=== PATIENT | male | born 1950 | race Caucasian/White ===

== ENCOUNTER 2017-09-06 17:45 | Emergency (ER) | payer MEDICARE ==
[2017-09-06 18:58] LABS: BASO % 0.5 % (0.0-1.0); EOS # 0.1 10^3/uL (0.0-0.50); EOS % 2.2 % (0.0-3.0); HEMATOCRIT 38.3 % (42.0-52.0); HEMOGLOBIN 12.2 g/dl (13.5-17.5); IMMATURE GRANULOCYTE % 0.3 % (0-3.0); LYMPH # 1.5 10^3/uL (1.5-4.5); LYMPH % 25.6 % (24.0-44.0); MEAN CORPUSCULAR HEMOGLOBIN 27.9 pg (27.0-33.0); MEAN CORPUSCULAR HGB CONC 31.9 g/dl (32.0-36.5); MEAN CORPUSCULAR VOLUME 87.6 fl (80.0-96.0); MONO # 0.5 10^3/uL (0.0-0.8); MONO % 9.2 % (0.0-5.0); NEUTROPHILS # 3.6 10^3/uL (1.8-7.7); NEUTROPHILS % 62.2 % (36.0-66.0); PLATELET COUNT, AUTOMATED 244 10^3/uL (150-450); RED BLOOD COUNT 4.37 10^6/uL (4.30-6.10); WHITE BLOOD COUNT 5.9 10^3/uL (4.0-10.0)
[2017-09-06] MEDS: ASPIRIN 81 MG CHEW TABLET PO (19:06)
[2017-09-06 19:23] LABS: ALBUMIN 3.9 GM/DL (3.2-5.2); ALKALINE PHOSPHATASE 69 U/L (45-117); ALT/SGPT 25 U/L (12-78); ANION GAP 4 MEQ/L (8-16); AST/SGOT 12 U/L (7-37); BILIRUBIN,DIRECT 0.1 MG/DL (0.0-0.2); BILIRUBIN,TOTAL 0.4 MG/DL (0.2-1.0); BLOOD UREA NITROGEN 20 MG/DL (7-18); C REACTIVE PROTEIN QUANTITATIV < 0.30 MG/DL (0.00-0.30); CALCIUM LEVEL 8.5 MG/DL (8.8-10.2); CARBON DIOXIDE LEVEL 30 MEQ/L (21-32); CHLORIDE LEVEL 105 MEQ/L (98-107); CPK CREATINE PHOSPHOKINASE 91 U/L (39-308); GLOMERULAR FILTRATION RATE > 60.0 (>49); GLUCOSE, FASTING 95 MG/DL (70-100); POTASSIUM SERUM 4.1 MEQ/L (3.5-5.1); SODIUM LEVEL 139 MEQ/L (136-145); TOTAL PROTEIN 6.9 GM/DL (6.4-8.2); TROPONIN I < 0.02 NG/ML (< 0.10)
[2017-09-06 19:28] LABS: CK-MB VALUE MASS 1.1 NG/ML (<3.6); NT-PRO BNP 111 PG/ML (<125)
== END 2017-09-06 21:02 | disposition home or self-care (01) ==
LOC: M ED 17:45
DX: I20.8 Other forms of angina pectoris (principal); R06.02 Shortness of breath; I48.91 Unspecified atrial fibrillation; G47.33 Obstructive sleep apnea (adult) (pediatric); Z79.899 Other long term (current) drug therapy; Z79.01 Long term (current) use of anticoagulants
CPT/HCPCS: 71045

== ENCOUNTER 2018-08-14 11:48 | Day surgery (SDC) | payer MEDICARE ==
[~2018-08-14] VITALS: Ht 190.5 cm; Wt 82.5 kg
[~2018-08-14 11:48] MED LIST: ACET-907 PO; ASPI1CHW2 PO; CARV6.25 PO; ELIQ5TAB PO; FLOM0.4C39 PO; METO1TAB32 PO; NITR4TASL SL; VITA400C5 PO; VITA500T3 PO
[2018-08-14] MEDS ORDERED: ceFAZolin 1GM INJ (J0690 PER 500MG) As Ordered ONE (12:12)
[2018-08-14] MEDS ORDERED: LIDOCAINE 1% MDV 20ML VIAL SQ PRN (12:30)
[2018-08-14] MEDS ORDERED: LR 1,000 ML IV SCH (12:30)
[2018-08-14] MEDS ORDERED: ceFAZolin SOD 1 GM in D5W MINI-BAG PLUS 50 ML IV ONE (12:45)
[2018-08-14] MEDS ORDERED: MIDAZOLAM INJ 2 MG/2 ML VIAL (J2250) As Ordered ONE (13:30)
[2018-08-14] MEDS ORDERED: fentaNYL 100 MCG/2 ML INJECTION (J3010) As Ordered ONE (13:31)
[2018-08-14] MEDS ORDERED: LIDOCAINE 1% SDV INJ 30 ML VIAL As Ordered ONE (14:57)
[2018-08-14] MEDS ORDERED: PROPOFOL 200 MG/20 ML VIAL As Ordered ONE (15:11)
[2018-08-14] MEDS ORDERED: ONDANSETRON 4MG/2ML VIAL (J2405) As Ordered ONE (15:12)
--- NOTE | 2018-08-14 15:59 | RO ---
DATE OF PROCEDURE: 08/14/2018 PREOPERATIVE DIAGNOSIS: Paroxysmal atrial fibrillation monitoring. POSTOPERATIVE DIAGNOSIS: Paroxysmal atrial fibrillation monitoring. FINDINGS: Paroxysmal atrial fibrillation monitoring. OPERATIVE PROCEDURE: Implantation of [employer] implantable loop recorder. SURGEON: Janusz Huertas MD MULE DEVELOPER: None. ANESTHESIA: Lidocaine 1% local/monitored anesthetic care. SPECIMENS: None. ESTIMATED BLOOD LOSS: Less than 1 mL. BLOOD PRODUCTS REPLACED: None. DRAINS: None. COMPLICATIONS: None. DESCRIPTION OF OPERATION: The patient was prepped and draped over the sternum and left anterior chest. Lidocaine 1% was used for local anesthetic. An incision approximately 1 cm in length was made with a #15 blade through the skin at the left fourth interspace close to the left parasternal border. The guide on the insertion tool was placed into the incision and advanced subcutaneously parallel to the chest wall in a caudal direction. The insertion tool was rotated 180 degrees. The plunger was then placed into the insertion tool and used to advance the loop recorder into the subcutaneous fat. The plunger was then removed and then the insertion tool was removed leaving the loop recorder in situ. Next, I used a #4-0 Biosyn suture to approximate the skin temporarily by having the free ends protruding through the skin about a centimeter from either side of the incision and applying the suture subcutaneously. Next, two layers of Dermabond was applied and allowed to dry. The Biosyn suture was then removed entirely from the suture line by pulling it through. The patient tolerated the procedure well without any immediate complications. The initial R wave amplitude was 0.43 mV. The implantable loop recorder implanted was a Xunlei Reveal LINQ, model LNQ11 with serial number [id number].
[2018-08-14 16:06] VITALS: BP 115/6
== END 2018-08-14 16:07 | disposition home or self-care (01) ==
LOC: M SDC 11:48
PROVIDERS: ATTEND Internal Medicine Cardiovascular Disease
DX: I48.0 Paroxysmal atrial fibrillation (principal); G47.30 Sleep apnea, unspecified; Z79.899 Other long term (current) drug therapy
CPT/HCPCS: 33285; C1764; J0690; J2250; J2405; J3010

== ENCOUNTER 2019-09-28 03:24 | Emergency (ER) | payer MEDICARE ==
[~2019-09-28 03:24] MED LIST changes: +CYAN500T8 PO; -VITA400C5 PO; +VITA400C83 PO; -VITA500T3 PO
[2019-09-28] MEDS ORDERED: KETOROLAC 30 MG/ML 1ML VIAL ONE (06:57)
[2019-11-01 09:10] LABS: APPEARANCE, URINE CLOUDY (CLEAR); BACTERIA, URINE AUTO NEGATIVE (NEGATIVE); BASO % 0.6 % (0.0-1.0); BILIRUBIN, URINE AUTO NEGATIVE (NEGATIVE); BLOOD, URINE BLOOD 3+ (NEGATIVE); CALCIUM OXALATE CRYSTALS LARGE; COLOR, URINE AMBER (YELLOW); EOS # 0.1 10^3/uL (0.0-0.5); EOS % 1.3 % (0.0-3.0); GLUCOSE, URINE (UA) AUTO NEGATIVE (NEGATIVE); HEMATOCRIT 40.5 % (42.0-52.0); HEMOGLOBIN 12.4 g/dl (13.5-17.5); KETONE, URINE AUTO 1+ mg/dL (NEGATIVE); LEUKOCYTE ESTERASE, URINE AUTO NEGATIVE (NEGATIVE); LYMPH % 18.6 % (24.0-44.0); MEAN CORPUSCULAR HEMOGLOBIN 27.9 pg (27.0-33.0); MEAN CORPUSCULAR HGB CONC 30.6 g/dl (32.0-36.5); MEAN CORPUSCULAR VOLUME 91.2 fl (80.0-96.0); MONO # 0.4 10^3/uL (0.0-0.8); MONO % 6.6 % (0.0-5.0); MUCUS, URINE SMALL (NEGATIVE); NEUTROPHILS # 3.9 10^3/uL (1.5-8.5); NEUTROPHILS % 72.3 % (36.0-66.0); NITRITE, URINE AUTO NEGATIVE (NEGATIVE); PLATELET COUNT, AUTOMATED 203 10^3/uL (150-450); PROTEIN, URINE AUTO 1+ mg/dL (NEGATIVE); RBC, URINE AUTO TNTC /HPF (0-3); RED BLOOD COUNT 4.44 10^6/uL (4.30-6.10); SQUAMOUS EPITHELIAL CELL UR AU 1 /HPF (0-6); UROBILINOGEN, URINE AUTO 0.2 mg/dL (0.0-2.0); WBC, URINE AUTO 1 /HPF (0-3); WHITE BLOOD COUNT 5.4 10^3/uL (4.0-10.0)
[2019-12-12 13:45] LABS: ALBUMIN 3.7 GM/DL (3.2-5.2); ALT/SGPT 21 U/L (12-78); BILIRUBIN,DIRECT 0.1 MG/DL (0.0-0.2); BILIRUBIN,TOTAL 0.3 MG/DL (0.2-1.0); BLOOD UREA NITROGEN 18 MG/DL (7-18); CALCIUM LEVEL 8.4 MG/DL (8.8-10.2); CARBON DIOXIDE LEVEL 27 MEQ/L (21-32); CHLORIDE LEVEL 107 MEQ/L (98-107); CREATININE FOR GFR 0.78 MG/DL (0.70-1.30); GLOMERULAR FILTRATION RATE > 60.0 (>49); GLUCOSE, FASTING 120 MG/DL (70-100); LIPASE 35 U/L (73-393); POTASSIUM SERUM 3.9 MEQ/L (3.5-5.1); SODIUM LEVEL 142 MEQ/L (136-145); TOTAL PROTEIN 6.9 GM/DL (6.4-8.2)
== END 2019-09-28 08:15 | disposition home or self-care (01) ==
LOC: M ED 03:24
DX: N20.1 Calculus of ureter (principal); R93.5 Abnormal findings on diagnostic imaging of other abdominal regions, including retroperitoneum; I48.91 Unspecified atrial fibrillation; Z79.01 Long term (current) use of anticoagulants; Z79.899 Other long term (current) drug therapy
CPT/HCPCS: 74176; 80048; 80076; 81001; 83690; 85025; 96374; 99283; J1885

== ENCOUNTER → 2019-10-16 | Outpatient (REF) | payer MEDICARE ==
[2019-12-09 17:30] LABS: BLOOD UREA NITROGEN 11 MG/DL (7-18); CREATININE FOR GFR 0.85 MG/DL (0.70-1.30); GLOMERULAR FILTRATION RATE > 60.0 (>49)
== END ==
LOC: M SFHCCLAY 15:41
PROVIDERS: ATTEND Physician Assistant
DX: R93.5 Abnormal findings on diagnostic imaging of other abdominal regions, including retroperitoneum (principal); N20.0 Calculus of kidney; N64.4 Mastodynia

== ENCOUNTER → 2019-10-29 | Outpatient (REF) | payer MEDICARE | LOC: M LAB REF 14:16 | PROVIDERS: ATTEND Dermatology | DX: C44.319 Basal cell carcinoma of skin of other parts of face (principal); L82.1 Other seborrheic keratosis ==

== ENCOUNTER → 2019-11-03 | Outpatient (CLI) | payer MEDICARE ==
[2019-11-03 13:18] LABS: HCG, SERUM QUANTITATIVE < 1.0 MIU/ML
[2019-11-03 13:24] LABS: FOLLICLE STIMULATING HORMONE 25.7 mIU/mL (1.4-18.1); LUTEINIZING HORMONE 7.2 mIU/mL (1.5-9.3)
== END ==
LOC: M PLALAB 09:17
PROVIDERS: ATTEND Surgery
DX: N62 Hypertrophy of breast (principal)

== ENCOUNTER → 2019-11-27 | Outpatient (REF) | payer MEDICARE ==
[2019-11-27 16:45] LABS: BLOOD UREA NITROGEN 14 MG/DL (7-18); CALCIUM LEVEL 8.6 MG/DL (8.8-10.2); CARBON DIOXIDE LEVEL 29 MEQ/L (21-32); CHLORIDE LEVEL 105 MEQ/L (98-107); CREATININE FOR GFR 0.81 MG/DL (0.70-1.30); GLOMERULAR FILTRATION RATE > 60.0 (>49); GLUCOSE, FASTING 95 MG/DL (70-100); POTASSIUM SERUM 4.1 MEQ/L (3.5-5.1); SODIUM LEVEL 137 MEQ/L (136-145)
== END ==
LOC: M LABDRAWC 15:59
PROVIDERS: ATTEND Nurse Practitioner Women's Health
DX: D17.71 Benign lipomatous neoplasm of kidney (principal)

== ENCOUNTER → 2019-12-07 | Outpatient (CLI) | payer MEDICARE ==
[~2019-12-07] MED LIST changes: +ISOVUE-370 76% 100ML VIAL As Ordered ONE
--- NOTE | 2019-12-12 13:20 | REP ---
CT ABDOMEN WITHOUT AND WITH INTRAVENOUS (IV) CONTRAST HISTORY: Angiomyolipoma. COMPARISON: Abdominal CT study 09/28/2019. CT CONTRAST DOSE: 100 mL of intravenous Isovue-[address] FINDINGS: Preliminary digital esl teacher radiograph demonstrates a cardiac loop recorder projecting in the left precordium. Visualized bowel gas pattern is normal. The lung bases are essentially clear on axial CT images. There is a hepatic hemangioma in the right lobe of the liver measuring approximately 3.5 cm. This is unchanged from the prior CT and MRI study from 10/22/2019. There is a smaller hemangioma in the left lobe of the liver also unchanged. This measures approximately 1.6 cm in diameter. There is a cyst in the right lobe near the hepatic venous confluence 8 mm in diameter. There is another small cyst inferiorly in the right lobe measuring 7 mm. These are unchanged from the MRI study. Normal adrenal glands are seen. No splenic abnormality is observed. No abnormalities noted in the gallbladder or in the pancreas. The previously noted right-sided hydronephrosis has resolved. There is no evidence of intrarenal calculus. There is a peripheral lesion in the left mid kidney posteriorly 1.9 cm in diameter. This is slightly hyperintense on the noncontrast study and shows no evidence of contrast enhancement on post contrast dual-phase acquisition. This is similar to its appearance and lack of enhancement by MRI study 10/22/2019. It is unchanged from the 09/28/2019 CT study and is most compatible with a hyperdense cyst. No fat-containing mass is seen. There are tiny simple cortical cysts elsewhere in each kidney. No filling defect is seen in the collecting system. No ureteral calculus is observed. No retroperitoneal mass or adenopathy is seen. The exam is otherwise unremarkable. IMPRESSION: Findings consistent with hyperdense cyst posterior cortex left kidney 1.9 cm in greatest diameter unchanged in the interval since the 09/28/[address] study. Previously noted hydronephrosis on the right has resolved. There are stable hemangiomas and cysts in the liver. MTDD
== END ==
LOC: M RAD 10:16
PROVIDERS: ATTEND Nurse Practitioner Women's Health
DX: D17.71 Benign lipomatous neoplasm of kidney (principal)
CPT/HCPCS: 74170; Q9967

== ENCOUNTER → 2022-12-10 | Outpatient (REF) | payer MEDICARE ==
[~2022-12-10] MED LIST changes: +CYAN500T14 PO; -CYAN500T8 PO; -ISOVUE-370 76% 100ML VIAL As Ordered ONE
== END ==
LOC: M SFHCDERM 14:17
PROVIDERS: ATTEND Physician Assistant
DX: L91.8 Other hypertrophic disorders of the skin (principal)

== ENCOUNTER 2023-07-23 13:01 | Emergency (ER) | payer MEDICARE ==
[~2023-07-23] VITALS: Ht 190.5 cm; Wt 86.0 kg
[2023-07-23 13:51] LABS: APPEARANCE, URINE CLEAR (CLEAR); BACTERIA, URINE AUTO NEGATIVE (NEGATIVE); BILIRUBIN, URINE AUTO NEGATIVE (NEGATIVE); BLOOD, URINE BLOOD NEGATIVE (NEGATIVE); COLOR, URINE YELLOW (YELLOW); GLUCOSE, URINE (UA) AUTO NEGATIVE (NEGATIVE); KETONE, URINE AUTO NEGATIVE (NEGATIVE); LEUKOCYTE ESTERASE, URINE AUTO NEGATIVE (NEGATIVE); NITRITE, URINE AUTO NEGATIVE (NEGATIVE); PROTEIN, URINE AUTO NEGATIVE (NEGATIVE); RBC, URINE AUTO 0 /HPF (0-3); SQUAMOUS EPITHELIAL CELL UR AU 0 /HPF (0-6); UROBILINOGEN, URINE AUTO 0.2 mg/dL (0.0-2.0); WBC, URINE AUTO 0 /HPF (0-3)
[2023-07-23 16:55] VITALS: BP 134/70; TEMP 98; O2SAT 100
== END 2023-07-23 16:59 | disposition home or self-care (01) ==
LOC: M ED 13:01
DX: R10.31 Right lower quadrant pain (principal); G47.33 Obstructive sleep apnea (adult) (pediatric); Z87.442 Personal history of urinary calculi; Z86.79 Personal history of other diseases of the circulatory system; Z79.899 Other long term (current) drug therapy

== ENCOUNTER → 2023-08-29 | Outpatient (REF) | payer MEDICARE | LOC: M SFHCDERM 18:01 | PROVIDERS: ATTEND Physician Assistant | DX: C44.619 Basal cell carcinoma of skin of left upper limb, including shoulder (principal); D04.22 Carcinoma in situ of skin of left ear and external auricular canal ==

== ENCOUNTER → 2023-12-16 | Outpatient (REF) | payer MEDICARE | LOC: M SFHCDERM 17:04 | PROVIDERS: ATTEND Physician Assistant | DX: L81.4 Other melanin hyperpigmentation (principal); C44.719 Basal cell carcinoma of skin of left lower limb, including hip ==